=== PATIENT | female | born 1960 | race Caucasian/White ===

== ENCOUNTER 2016-08-01 06:06 | Day surgery (SDC) | payer BC ==
[2016-07-30 13:11] VITALS: BMI 27.9
[~2016-08-01 06:06] MED LIST: DEXAMETHASONE SOD PHOSPHATE 10 MG/ML 1 ML VIAL IV ONE; HEPARIN SODIUM,PORCINE 5,000 UNIT/ML 1 ML VIAL SQ ONE; HYDROmorphone 1 MG/ML 1 ML SYRINGE IVP PRN; LACTATED RINGERS 1,000 ML IV SCH; ONDANSETRON 4 MG/2 ML VIAL IVP ONE; ceFAZolin 2 GM in SODIUM CHLORIDE 0.9% 100 ML IVPB ONE
[2016-08-01] MEDS ORDERED: ONDANSETRON 4 MG/2 ML VIAL IVP ONE (06:15)
[2016-08-01] MEDS ORDERED: MIDAZOLAM 2 MG/2 ML VIAL IV PRN (06:15)
[2016-08-01] MEDS ORDERED: DEXAMETHASONE SOD PHOSPHATE 10 MG/ML 1 ML VIAL IV ONE (06:15)
[2016-08-01] MEDS ORDERED: LACTATED RINGERS 1,000 ML IV SCH (06:15)
[2016-08-01] MEDS ORDERED: LIDOCAINE 1% 20 ML VIAL (10MG/ML) FOR IV START INTRADERMA ONE (06:50)
[2016-08-01 06:53] LABS: Glucose,Whole Blood 122 mg/dL (75-99)
[2016-08-01 07:02] VITALS: RESP 16
[2016-08-01] MEDS ORDERED: BUPIVACAIN-EPI 0.25%-1:200,000 30 ML VIAL SQ ONE ×2 (07:14→08:16)
[2016-08-01 07:28] LABS: Anion Gap 9 mmol/L; Blood Urea Nitrogen 18 mg/dL (7-17); Calcium 9.1 mg/dL (8.4-10.2); Carbon Dioxide 27 mmol/L (22-30); Chloride 105 mmol/L (98-107); Glucose 118 mg/dL (74-99); Non-African American GFR(MDRD) >60 (>60 ml/min/1.73 sqM); Potassium 4.6 mmol/L (3.5-5.1); Sodium 141 mmol/L (137-145)
[2016-08-01] MEDS ORDERED: PROPOFOL 10 MG/ML 20 ML VIAL IV ONE (07:31)
[2016-08-01] MEDS ORDERED: NEOSTIGMINE 1 MG/ML 10 ML VIAL ONE (07:31)
[2016-08-01] MEDS ORDERED: MIDAZOLAM 2 MG/2 ML VIAL ONE (07:31)
[2016-08-01] MEDS ORDERED: ROCURONIUM BROMIDE 10 MG/ML 10 ML VIAL IV ONE (07:31)
[2016-08-01] MEDS ORDERED: fentaNYL (PF) 50 MCG/ML 2 ML AMP ONE (07:31)
[2016-08-01] MEDS ORDERED: SUCCINYLCHOLINE CHLORIDE 100 MG/5 ML SYR IV ONE (07:31)
[2016-08-01] MEDS ORDERED: LIDOCAINE 1% INJ 10MG/ML (20 ML MDV) ONE (07:31)
[2016-08-01] MEDS ORDERED: ePHEDrine 50 MG/ML 1 ML AMP ONE (07:31)
[2016-08-01] MEDS ORDERED: GLYCOPYRROLATE 0.2 MG/ML 2 ML VIAL ONE (07:31)
--- NOTE | 2016-08-01 07:31 | P.GSHP ---
History of Present Illness H&P Date: 08/01/16 Chief Complaint: Incisional hernia This a 56-year-old female who presents today for laparoscopic robotic-assisted repair of incisional hernia. Patient developed a mass just above her umbilicus. She has a low midline incision. 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, umbilical hernia History of Any Multi-Drug Resistant Organisms: None Reported Past Surgical History: Adenoidectomy, Section, Cholecystectomy, Tonsillectomy, Uterine Ablation Additional Past Surgical History / Comment(s): csection x2 Past Anesthesia/Blood Transfusion Reactions: No Reported Reaction Additional Past Anesthesia/Blood Transfusion Reaction / Comment(s): no history of blood transfusion or other issues Past Psychological History: Depression Smoking Status: Never smoker Past Alcohol Use History: Occasional Past Drug Use History: None Reported - Past Family History Mother Family Medical History: Cancer Additional Family Medical History / Comment(s): pancreatic cancer Medications and Allergies Home Medications Medication Instructions Recorded Confirmed Type Calcium Carbonate/Vitamin D3 1 each PO DAILY 02/10/16 07/31/16 History [Calcium 500-Vit D3 600 Tablet] Cyclobenzaprine [Flexeril] 10 mg PO DAILY 02/10/16 07/31/16 History Insulin Aspart (For Pump) [NovoLOG 0.01 unit SQ-PUMP CONTINUOUS 02/10/16 History (For Pump)] Multivitamins, Thera [Multivitamin] 1 tab PO DAILY 02/10/16 07/31/16 History clonazePAM [KlonoPIN] 3 mg PO QAM 02/10/16 07/31/16 History FLUoxetine HCL 80 mg PO QAM 07/31/16 07/31/16 History Simvastatin [Zocor] 40 mg PO HS 07/31/16 07/31/16 History Venlafaxine HCl [Effexor] 75 mg PO HS 07/31/16 07/31/16 History clonazePAM [KlonoPIN] 1 mg PO HS 07/31/16 07/31/16 History Allergies Allergy/AdvReac Type Severity Reaction Status Date / Time codeine Allergy Nausea & Verified 08/01/16 06:23 Vomiting Surgical - Exam Vital Signs Temp Pulse Resp BP Pulse Ox 97.1 F L 76 16 100/61 97 08/01/16 06:59 08/01/16 06:59 08/01/16 06:59 08/01/16 06:59 08/01/16 06:59 - General well developed, no distress - Eyes PERRL - ENT normal pinna - Neck no masses - Respiratory normal expansion - Cardiovascular Rhythm: regular - Abdomen Abdomen: soft, non tender Hernia: incisional (5 cm incisional hernia located above the umbilicus) Results - Labs Abnormal Lab Results - Last 24 Hours (Table) 08/01/16 Range/Units 06:37 POC Glucose (mg/dL) 122 H (75-99) mg/dL Assessment and Plan Plan: Incarcerated incisional hernia. We'll perform laparoscopic robotic-assisted repair.
[2016-08-01 08:07] LABS: Hemoglobin A1C 7.1 % (4.2-6.1)
--- NOTE | 2016-08-01 08:52 | P.OP ---
Date of Procedure: 08/01/16 Preoperative Diagnosis: Incarcerated incisional hernia Postoperative Diagnosis: Partial incisional hernia Procedure(s) Performed: Laparoscopic robotic-assisted repair of incarcerated incisional hernia Implants: Anesthesia: JENNIFERA Surgeon: Alvin Hui Estimated Blood Loss (ml): 5 Pathology: none sent Condition: stable Disposition: PACU Indications for Procedure: Operative Findings: Description of Procedure: Patient's placed on the operative table in supine position. Her abdomen was prepped and draped usual sterile fashion after receiving general anesthesia. The skin incision sites were anesthetized 1% local Xylocaine. And then using a 11 blade the skin was incised in the left upper quadrant and then using the optical 5 mm trocar in the cavity is entered. After adequate insufflation the laparoscope was placed back the pleural cavity. And then the 8 mm robotic trochars placed left lower quadrant and a 12 mm trochars placed in the left lateral position. The original 5 mm trocar was exchanged for an 8 mm robotic trocar. The patient's placed the left side up position and then docked the robot. There was incarcerated omentum within the hernia. Using hook cautery and gentle traction the omentum was reduced into the pleural cavity. The fascial defect was then closed with OV lock suture. The repair was then buttressed with ventral light ST mesh secured with 2 OV lock suture. The needles were cut and then the patient was undocked from the robot. The needles were retrieved and then the 12 mm trocar site was closed with 0 Ethibond suture. The trochars withdrawn. The skin was closed interrupted 3-0 Monocryl suture. Dermabond was applied. Patient top procedure well was sent to recovery in stable condition.
[2016-08-01] MEDS ORDERED: LACTATED RINGERS 1,000 ML IV ONE (08:57)
[2016-08-01] MEDS: HYDROmorphone 1 MG/ML 1 ML SYRINGE IVP PRN ×4 (09:09→09:36)
[2016-08-01 09:10] LABS: Glucose,Whole Blood 148 mg/dL (75-99)
[2016-08-01 09:14] VITALS: TEMP 96.8
[2016-08-01] MEDS ORDERED: KETOROLAC 30 MG/ML 1 ML VIAL IVP ONE (09:26)
[2016-08-01] MEDS ORDERED: HYDROcodone/APAP 7.5-325MG 1 EACH TAB PO ONE (10:40)
[2016-08-01 10:58] VITALS: BP 95/48; PULSE 104
[2016-08-01 11:47] LABS: Glucose,Whole Blood 307 mg/dL (75-99)
== END 2016-08-01 12:02 | disposition home or self-care (01) ==
LOC: OR 06:06
PROVIDERS: ATTEND Surgery
DX: K43.0 Incisional hernia with obstruction, without gangrene (principal); E11.9 Type 2 diabetes mellitus without complications; E78.5 Hyperlipidemia, unspecified; M19.90 Unspecified osteoarthritis, unspecified site; F32.9 Major depressive disorder, single episode, unspecified; Z79.4 Long term (current) use of insulin; Z88.5 Allergy status to narcotic agent; Z96.41 Presence of insulin pump (external) (internal); Z79.899 Other long term (current) drug therapy
CPT/HCPCS: 49655; S2900; 80048; 83036; 86850; 86900; 86901; 93005

== ENCOUNTER → 2017-05-08 | Outpatient (CLI) | payer BC | END | disposition home or self-care (01) | LOC: LABWHC1 16:58 | PROVIDERS: ATTEND Internal Medicine Endocrinology, Diabetes & Metabolism | DX: E10.65 Type 1 diabetes mellitus with hyperglycemia (principal) | CPT/HCPCS: 36415; 82024; 82533 ==

== ENCOUNTER → 2017-05-17 | Outpatient (CLI) | payer BC ==
[~2017-05-17] MED LIST changes: +COSYNTROPIN 0.25 MG VIAL IVP ONE; -DEXAMETHASONE SOD PHOSPHATE 10 MG/ML 1 ML VIAL IV ONE; -HEPARIN SODIUM,PORCINE 5,000 UNIT/ML 1 ML VIAL SQ ONE; -HYDROmorphone 1 MG/ML 1 ML SYRINGE IVP PRN; -LACTATED RINGERS 1,000 ML IV SCH; -ONDANSETRON 4 MG/2 ML VIAL IVP ONE; -ceFAZolin 2 GM in SODIUM CHLORIDE 0.9% 100 ML IVPB ONE
[2017-05-17 12:46] VITALS: BP 120/58; PULSE 80; RESP 16; TEMP 98.6
== END | disposition home or self-care (01) ==
LOC: PROCWHC3 12:01
PROVIDERS: ATTEND Internal Medicine Endocrinology, Diabetes & Metabolism
DX: E03.8 Other specified hypothyroidism (principal)
CPT/HCPCS: 82533; 82024; 96374; J0834